=== PATIENT | female | born 1970 ===

== ENCOUNTER 2017-07-24 16:43 | Emergency (ER) | payer OTHER ==
[2017-07-24 16:48] VITALS: RESP 18
[2017-07-24] MEDS ORDERED: Sodium Chloride 0.9% 1,000 ML IV ONE (16:58)
[2017-07-24] MEDS ORDERED: Sodium Chloride 0.9% 1,000 ML ONE (17:10)
--- NOTE | 2017-07-24 17:21 | C.PDOC ---
History Of Present Illness 47 y/o female with Hx of gastritis presents to ED with complaints of left flank pain since yesterday. As per patient pain is sharp, stabbing radiating to epigastric area with associated "bloating" and nausea. Patient reports having the epigastric pain before and denies vomiting, urinary or bowel changes, fever , chills or any other complaints at this time. Time Seen by Provider: 07/24/17 16:53 Chief Complaint (Nursing): Abdominal Pain History Per: Patient History/Exam Limitations: no limitations Onset/Duration Of Symptoms: Days Current Symptoms Are (Timing): Still Present Location Of Pain/Discomfort: Epigastric Past Medical History Reviewed: Historical Data, Nursing Documentation, Vital Signs Vital Signs: Last Vital Signs Temp 98 F 07/24/17 16:45 Pulse 74 07/24/17 16:45 Resp 18 07/24/17 16:45 BP 124/79 07/24/17 16:45 Pulse Ox 96 07/24/17 17:24 Surgical History: No Surg Hx Family History: States: No Known Family Hx - Social History Hx Alcohol Use: No Hx Substance Use: No - Immunization History Hx Tetanus Toxoid Vaccination: No Hx Influenza Vaccination: No Review Of Systems Except As Marked, All Systems Reviewed And Found Negative. Constitutional: Negative for: Fever, Chills Gastrointestinal: Positive for: Nausea, Abdominal Pain. Negative for: Vomiting Genitourinary: Negative for: Dysuria, Frequency, Hematuria Musculoskeletal: Negative for: Back Pain Skin: Negative for: Rash Physical Exam - Physical Exam Appears: Non-toxic, Other (Uncomfortable) Skin: Normal Color, Warm, Dry, No Rash Head: Atraumatic, Normacephalic Eye(s): bilateral: Normal Inspection Oral Mucosa: Moist Neck: Normal ROM, Supple Respiratory: Normal Breath Sounds, No Rales, No Rhonchi, No Wheezing, Other ( Pain with deep breaths) Gastrointestinal/Abdominal: Soft, Tenderness (Epigastric), No Guarding, No Rebound Back: CVA Tenderness (left), No Paraspinal Tenderness Extremity: Normal ROM, Capillary Refill (<2 seconds) Neurological/Psych: Oriented x3 ED Course And Treatment - Laboratory Results Result Diagrams: 07/24/17 17:14 07/24/17 17:14 Lab Interpretation: Abnormal (WBC 11.9, urine WBC 12 with 1+ leukocyte esterase , culture sent) O2 Sat by Pulse Oximetry: 96 (RA) Pulse Ox Interpretation: Normal - CT Scan/US CT abdomen and pelvis Other Rad Studies (CT/US): Read By Radiologist, Radiology Report Reviewed CT/US Interpretation: Accession No. : [id number]. Patient Name / ID : VASQUEZ MOTA / [id number]. Exam Date : 07/24/2017 18:00:26 ( Approved ). Study Comment : Sex / Age : F / 47Y. Creator : Alejandra Gore MD. Dictator : Alejandra Gore MD. Civil Technician : Adjudication Specialist : Alejandra Gore MD. Approver2 : Report Date : 07/24/2017 18:45:54. My Comment : . PROCEDURE: CT Abdomen and Pelvis without Oral or IV contrast. HISTORY: abd pain. COMPARISON: None available. TECHNIQUE: Contiguous axial images of the abdomen and pelvis. No oral or IV contrast administered. Coronal and Sagittal reformats generated and reviewed. Radiation dose: Total exam DLP = 876.14 mGy-cm. This CT exam was performed using one or more of the following dose reduction techniques: Automated exposure control, adjustment of the mA and/ or kV according to patient size, and/or use of iterative reconstruction technique. FINDINGS: There is limited evaluation of the solid organs without the administration of IV contrast. LOWER THORAX: No visible consolidation, pleural effusion, or pneumothorax. LIVER: Unremarkable unenhanced appearance. GALLBLADDER AND BILE DUCTS: Unremarkable unenhanced appearance. PANCREAS: Unremarkable unenhanced appearance. SPLEEN: Unremarkable unenhanced appearance. ADRENALS: Unremarkable unenhanced appearance. KIDNEYS AND URETERS : No hydronephrosis or obstructing renal calculus. BLADDER: The urinary bladder appears unremarkable. REPRODUCTIVE: Uterus is present. APPENDIX: The appendix is not identified. No secondary signs of acute appendicitis. BOWEL : The stomach is nondistended. Lack of oral contrast limits evaluation for bowel pathology. The bowel loops appear within normal limits of caliber without evidence of intestinal obstruction. Moderate constipation. PERITONEUM: No significant free fluid. No definite free air. LYMPH NODES: No bulky lymphadenopathy identified. VASCULATURE: No aortic aneurysm. BONES: No acute osseous abnormality is detected. OTHER FINDINGS: Small fat containing umbilical hernia. IMPRESSION: Moderate constipation. Small fat containing umbilical hernia. Reevaluation Time: 19:43 Reassessment Condition: Improved Disposition Counseled Patient/Family Regarding: Studies Performed, Diagnosis, Need For Followup - Disposition Referrals: [facility] [Outside] Disposition: HOME/ ROUTINE Disposition Time: 19:46 Condition: IMPROVED Additional Instructions: Restart the Zantac twice a day and Omeprazole once a day as you have taken in the past for gastritis. Follow up with the clinic in the next few days if pain persists. Return to the ED if pain should worsen. Instructions: Epigastric Pain (ED) Forms: [employer] (Romanian) Print Language: SAMMARINESE - Clinical Impression Clinical Impression: Epigastric abdominal pain - Scribe Statement The provider has reviewed the documentation as recorded by the Romeliaibchapito Mendes All medical record entries made by the Satish were at my direction and personally dictated by me. I have reviewed the chart and agree that the record accurately reflects my personal performance of the history, physical exam, medical decision making, and the department course for this patient. I have also personally directed, reviewed, and agree with the discharge instructions and disposition.
[2017-07-24 17:27] LABS: CHLORIDE 105 mmol/L (98-107); SODIUM 139 mmol/L (132-148)
[2017-07-24 17:28] LABS: POTASSIUM 4.6 mmol/L (3.6-5.2)
[2017-07-24 17:29] LABS: BILIRUBIN,TOTAL 0.8 mg/dL (0.2-1.3); GFR AFRICAN-AMERICAN > 60
[2017-07-24 17:30] LABS: ALB/GLOB RATIO 1.3 (1.0-2.1); ALKALINE PHOSPHATASE 80 U/L (38-126); ALT/SGPT 37 U/L (9-52); AST/SGOT 38 U/L (14-36); BLOOD UREA NITROGEN 16 mg/dL (7-17); CARBON DIOXIDE 23 mmol/L (22-30); GLUCOSE,RANDOM 87 mg/dL (65-105)
[2017-07-24 17:31] LABS: BASO # 0.1 K/uL (0.0-0.2); BASO % 0.6 % (0.0-2.0); EOS # 0.1 K/uL (0.0-0.7); HEMATOCRIT 40.9 % (34.0-47.0); LYMPH # 3.7 K/uL (1.0-4.3); LYMPH % 30.6 % (20.0-40.0); MEAN CELL VOLUME 86.6 fL (81.0-99.0); MEAN CORPUSCULAR HEMOGLOBIN 28.7 pg (27.0-31.0); MEAN CORPUSCULAR HGB CONC 33.1 g/dL (33.0-37.0); MEAN PLATELET VOLUME 9.1 fL (7.2-11.7); MONO # 0.6 K/uL (0.0-0.8); MONO % 4.8 % (0.0-10.0); NRBC % 0.1 % (0.0-2.0); RED CELL DISTRIBUTION WIDTH 13.2 % (11.5-14.5); WHITE BLOOD COUNT 11.9 K/uL (4.8-10.8)
[2017-07-24 17:39] LABS: RBC URINE 4 /hpf (0-3); URINE BACTERIA OCC (<OCC); URINE BILIRUBIN NEGATIVE (NEGATIVE); URINE BLOOD NEGATIVE (NEGATIVE); URINE COLOR Yellow (YELLOW); URINE GLUCOSE (UA) NORMAL (Normal); URINE KETONE NEGATIVE (NEGATIVE); URINE PROTEIN NEGATIVE (NEGATIVE); URINE UROBILINOGEN NORMAL mg/dL (0.2-1.0); WBC URINE 12 /hpf (0-5)
[2017-07-24 17:40] LABS: URINE LEUKOCYTE ESTERASE 1+ Leu/uL (Negative)
--- NOTE | 2017-07-24 18:47 | CT ---
PROCEDURE: CT Abdomen and Pelvis without Oral or IV contrast. HISTORY: abd pain COMPARISON: None available. TECHNIQUE: Contiguous axial images of the abdomen and pelvis. No oral or IV contrast administered. Coronal and Sagittal reformats generated and reviewed. Radiation dose: Total exam DLP = 876.14 mGy-cm. This CT exam was performed using one or more of the following dose reduction techniques: Automated exposure control, adjustment of the mA and/or kV according to patient size, and/or use of iterative reconstruction technique. FINDINGS: There is limited evaluation of the solid organs without the administration of IV contrast. LOWER THORAX: No visible consolidation, pleural effusion, or pneumothorax. LIVER: Unremarkable unenhanced appearance. GALLBLADDER AND BILE DUCTS: Unremarkable unenhanced appearance. PANCREAS: Unremarkable unenhanced appearance. SPLEEN: Unremarkable unenhanced appearance. ADRENALS: Unremarkable unenhanced appearance. KIDNEYS AND URETERS: No hydronephrosis or obstructing renal calculus. BLADDER: The urinary bladder appears unremarkable. REPRODUCTIVE: Uterus is present. APPENDIX: The appendix is not identified. No secondary signs of acute appendicitis. BOWEL: The stomach is nondistended. Lack of oral contrast limits evaluation for bowel pathology. The bowel loops appear within normal limits of caliber without evidence of intestinal obstruction. Moderate constipation. PERITONEUM: No significant free fluid. No definite free air. LYMPH NODES: No bulky lymphadenopathy identified. VASCULATURE: No aortic aneurysm. BONES: No acute osseous abnormality is detected. OTHER FINDINGS: Small fat containing umbilical hernia. IMPRESSION: Moderate constipation. Small fat containing umbilical hernia.
[2017-07-24 20:32] VITALS: BP 108/70; PULSE 66; TEMP 98; O2SAT 99
== END 2017-07-24 20:32 | disposition home or self-care (01) ==
LOC: C.ER 16:43
DX: R10.13 Epigastric pain (principal)
CPT/HCPCS: 74176; 80053; 81001; 83690; 84703; 85025; 87086; 96361; 96374; 96375; 99285; J2270; J2405; J7040

== ENCOUNTER 2018-11-13 20:15 | Emergency (ER) | payer SELFPAY ==
[2018-11-13 20:58] VITALS: BP 160/88; PULSE 66; RESP 20; TEMP 98.3; O2SAT 100
--- NOTE | 2018-11-13 21:14 | C.PDOC ---
History Of Present Illness 48 y/o female with no significant PMH presents c/o left upper outer breast tenderness x 1 week. Reports associated swelling of the breast in the affected area. Receives annual mammograms, next appointment next month. Has not taken any medications for symptoms. Denies fevers, chills, chest pain, SOB, palpitations, diaphoresis, arm pain, nipple discharge, abdominal pain, N/V, headache, dizziness, unintended weight loss, night sweats, or any other associated symptoms. Time Seen by Provider: 11/13/18 20:45 Chief Complaint (Nursing): Abnormal Skin Integrity History Per: Patient, Family (Daughter translated) History/Exam Limitations: language barrier Onset/Duration Of Symptoms: Days Current Symptoms Are (Timing): Still Present Past Medical History Reviewed: Historical Data, Nursing Documentation, Vital Signs Vital Signs: Last Vital Signs Temp 98.3 F 11/13/18 20:50 Pulse 66 11/13/18 20:50 Resp 20 11/13/18 20:50 BP 160/88 H 11/13/18 20:50 Pulse Ox 100 11/13/18 20:50 Family History: States: Unknown Family Hx - Social History Hx Alcohol Use: No Hx Substance Use: No - Immunization History Hx Tetanus Toxoid Vaccination: No Hx Influenza Vaccination: No Review Of Systems Except As Marked, All Systems Reviewed And Found Negative. Constitutional: Negative for: Fever, Chills Eyes: Negative for: Vision Change ENT: Negative for: Nose Congestion Cardiovascular: Negative for: Chest Pain, Palpitations Respiratory: Negative for: Cough, Shortness of Breath Gastrointestinal: Negative for: Nausea, Vomiting, Abdominal Pain Genitourinary: Negative for: Dysuria, Frequency Musculoskeletal: Positive for: Other (left upper outer breast pain). Negative for: Neck Pain, Back Pain Skin: Negative for: Rash, Lesions Neurological: Negative for: Weakness, Numbness, Headache, Dizziness Physical Exam - Physical Exam Appears: Well, No Acute Distress Skin: Normal Color, Warm, Dry Head: Atraumatic, Normacephalic Eye(s): bilateral: Normal Inspection, PERRL, EOMI Nose: Normal Oral Mucosa: Moist Throat: Normal Neck: Normal Chest: No Symmetrical (mild swelling noted to upper outer left breast without redness), Tenderness (left upper outer breast; no skin changes noted; no masses felt; no fluctuance) Cardiovascular: Rhythm Regular Respiratory: Normal Breath Sounds Gastrointestinal/Abdominal: Bowel Sounds (normal), Soft, No Tenderness Back: Normal Inspection, No CVA Tenderness, No Vertebral Tenderness, No Decreased ROM Extremity: Normal ROM, No Tenderness, Capillary Refill (<2s) Extremity: Bilateral: Atraumatic, No Pedal Edema, Normal Color And Temperature, Normal ROM Pulses: Left Radial: Normal, Right Radial: Normal Neurological/Psych: Oriented x3, Normal Speech, Normal Cognition, Normal Motor, Normal Sensation Gait: Steady ED Course And Treatment O2 Sat by Pulse Oximetry: 100 Medical Decision Making Medical Decision Making: Initial Plan: * Left Breast US Breast US shows axillary lymph nodes and cysts. BIRADS 2. Advise followup with OBGYN and PMD with copy of ultrasound report provided to patient. Diagnostic testing results and plan of care discussed with patient. Strict instructions given regarding prescription use, importance of followup, and signs/symptoms to return to ER including worsening pain, skin changes, fever, chills, or any other new/worsening symptoms. Pt verbalized understanding of discussion. Patient is A&Ox3, ambluating with steady gait, with vital signs stable for discharge. Disposition - Disposition [facility]errals[facility]Outside] Marin Morfin MD [Staff Provider] - Disposition: HOME/ ROUTINE Disposition Time: 23:40 Condition: GOOD Additional Instructions: Naproxen daily with food as needed for pain Warm compresses over painful area Followup with OBGYN within 2 days Followup with primary doctor within 2 days Return to ER with any new/worsening symptoms Prescriptions: Naproxen [Naprosyn] 500 mg PO DAILY PRN #14 tablet PRN Reason: Pain, Moderate (4-7) Instructions: Common Breast Problems, Mastalgia (DC) Forms: Gen Discharge Inst Vietnamese, [employer] (Vietnamese), Work Excuse Print Language: NICARAGUAN - Clinical Impression Clinical Impression: Breast pain
--- NOTE | 2018-11-14 10:57 | US ---
Date of service: 11/13/2018 HISTORY: Reason for exam: No family history of breast cancer. No personal history of breast cancer. No current complaints. COMPARISON: TECHNIQUE: Targeted high-resolution ultrasound of the left breast was performed with real-time linear scanner. FINDINGS: LEFT BREAST: There is heterogeneous background echotexture. At 1 o'clock position 3 cm from the nipple, there are 8 x 5 x 8 mm and 4 x 3 x 3 mm simple cyst. At 1 o'clock position, there is a 8 x 5 x 9 mm simple cyst. No suspicious solid mass. There are 2 prominent morphologically normal axillary lymph nodes, the largest measures 1.7 cm. IMPRESSION: Simple cysts at 1 o'clock position 3 cm from the nipple and 1 cm from the nipple, the largest measures 8 x 5 x 9 mm. No sonographic evidence of malignancy. Clinical follow-up is advised and further management should be based on the clinical parameters. BIRAD: BIRADS 2 Benign finding Recommendation: Continue annual screening mammography, as per ACR guidelines. A preliminary report was provided by [employer].
== END 2018-11-13 23:42 | disposition home or self-care (01) ==
LOC: C.ER 20:15
DX: N64.4 Mastodynia (principal)

== ENCOUNTER 2018-12-19 18:35 | Emergency (ER) | payer OTHER ==
[2018-12-19 18:42] VITALS: BMI 34.0
[2018-12-19 18:47] VITALS: BP 129/86; PULSE 58; RESP 18; TEMP 97.9; O2SAT 98
--- NOTE | 2018-12-19 19:30 | C.PDOC ---
History Of Present Illness 48 year old female presents to the ED c/o left upper breast pain and swelling. Patient reports she was seen in the ED 3 weeks ago for same, patient had US done which showed multiple cystic structures on her left breast. Patient was told she needed follow up with mammogram but patient had not done it yet. Patient no reports her pain is radiating to her left posterior shoulder. Patient denies fever, chills, CP, SOB, rash, injury, fall, trauma, weakness, numbness. Time Seen by Provider: 12/19/18 19:23 Chief Complaint (Nursing): Upper Extremity Problem/Injury History Per: Patient History/Exam Limitations: no limitations Onset/Duration Of Symptoms: Days Current Symptoms Are (Timing): Still Present Quality: "Pain" Recent travel outside of the [place]: No Additional History Per: Patient Past Medical History Reviewed: Historical Data, Nursing Documentation, Vital Signs Vital Signs: Last Vital Signs Temp 97.9 F 12/19/18 18:42 Pulse 58 L 12/19/18 18:42 Resp 18 12/19/18 18:42 BP 129/86 12/19/18 18:42 Pulse Ox 98 12/19/18 18:42 - Medical History PMH: No Chronic Diseases Surgical History: No Surg Hx Family History: States: Unknown Family Hx - Social History Hx Alcohol Use: No Hx Substance Use: No - Immunization History Hx Tetanus Toxoid Vaccination: No Hx Influenza Vaccination: Yes Hx Pneumococcal Vaccination: No Review Of Systems Constitutional: Negative for: Fever, Chills Eyes: Negative for: Vision Change Cardiovascular: Positive for: Chest Pain (breast pain) Respiratory: Negative for: Cough, Shortness of Breath Gastrointestinal: Negative for: Nausea, Vomiting, Abdominal Pain Skin: Negative for: Rash Neurological: Negative for: Weakness, Numbness, Headache, Dizziness Physical Exam - Physical Exam Appears: Non-toxic, No Acute Distress Skin: Normal Color, Warm, Dry Head: Atraumatic, Normacephalic Eye(s): bilateral: Normal Inspection Neck: Normal ROM, Supple Chest: Symmetrical, Tenderness (left upper breast tenderness and swelling at 1o' clock) Cardiovascular: Rhythm Regular Respiratory: Normal Breath Sounds, No Rales, No Rhonchi, No Wheezing Gastrointestinal/Abdominal: Soft, No Tenderness, No Guarding, No Rebound Extremity: Normal ROM, Tenderness (left posterior shoulder), No Swelling Neurological/Psych: Oriented x3, Normal Speech, Normal Cognition Gait: Steady ED Course And Treatment O2 Sat by Pulse Oximetry: 98 (ON RA) Pulse Ox Interpretation: Normal - Other Rad Left shoulder X-Ray X-Ray: Interpreted by Me, Viewed By Me Interpretation: No fracture or dislocation Progress Note: Patient's imaging results were discussed, patient was advised to follow up with PMD and have mammogram done. Disposition - Disposition Referrals: Sugey Woo MD [Medical Doctor] - Disposition: HOME/ ROUTINE Disposition Time: 20:09 Condition: STABLE Additional Instructions: Follow up with PMD within 1-2 days. Mammogram is recommended EDISON. Breast s pecialist consult. Return to ED if feel worse. Prescriptions: Ibuprofen [Motrin Tab] 600 mg PO Q8 #30 tab Instructions: Breast Ultrasound, Shoulder Pain (DC) Forms: [employer] (Georgian) Print Language: FIJIAN - Clinical Impression Clinical Impression: Breast lump in female, Shoulder pain, left - PA / TAP DANCER / Resident Statement MD/DO has reviewed & agrees with the documentation as recorded. - Scribe Statement The provider has reviewed the documentation as recorded by the Scribe Edgar Steinberg All medical record entries made by the Scribe were at my direction and personally dictated by me. I have reviewed the chart and agree that the record accurately reflects my personal performance of the history, physical exam, medical decision making, and the department course for this patient. I have also personally directed, reviewed, and agree with the discharge instructions and disposition.
--- NOTE | 2018-12-22 11:31 | RAD ---
PROCEDURE: Radiographs of the Left Shoulder HISTORY: pain COMPARISON: None available. FINDINGS: BONES: No acute displaced fracture. The distal clavicle and underlying ribs appear intact. JOINTS: No acute dislocation. SOFT TISSUES: Soft tissues appear unremarkable. No evidence of radiopaque foreign body. IMPRESSION: No acute displaced fracture or dislocation evident. If symptoms persist or if there is continued clinical concern, x-ray follow-up in 7-10 days should be considered.
== END 2018-12-19 20:27 | disposition home or self-care (01) ==
LOC: C.ER 18:35
DX: N63.20 Unspecified lump in the left breast, unspecified quadrant (principal); M25.512 Pain in left shoulder

== ENCOUNTER 2019-01-01 12:16 | Outpatient (CLI) | payer SELFPAY | END 2019-01-01 12:17 | disposition home or self-care (01) | LOC: C.MAMMO 12:16 | DX: Z12.31 Encounter for screening mammogram for malignant neoplasm of breast (principal) ==